=== PATIENT | male | born 2000 | race Caucasian/White ===

== ENCOUNTER 2024-09-03 20:38 | Observation (INO) ==
--- NOTE | 2024-09-03 21:57 | Emergency Department Note ---
History of Present Illness General Chief complaint: Laceration/Cut (Suture/Dermabond) Stated complaint: RT ELBOW, CUT Time Seen by Provider: 09/03/24 21:48 History of Present Illness Maximum Pain Intensity: 4 This is a 23-year-old male that presents to the emergency department via private vehicle with complaints of "right elbow pain". The patient notes that around 10 PM yesterday he was wrestling with a friend and struck the elbow against the ground. He denies striking the head or loss of consciousness. Laceration was sustained at that time. Since that time he notes progressive pain, swelling to the right elbow. Current pain 02/24. No nausea or vomiting. No fevers or chills. Patient notes he is otherwise healthy. No pertinent past medical history, surgeries or allergies. Patient [id number]. Patient notes tetanus vaccine is up-to-date. Home Medications Medication Instructions Recorded Confirmed Type No Known Home Medications 02/23/22 02/23/22 History Allergies Allergy/AdvReac Type Severity Reaction Status Date / Time cat dander Allergy Mild Congested Verified 02/23/22 16:36 ragweed pollen Allergy Mild Congested Verified 02/23/22 16:36 Past Med/Surg History Problem List (Updated 09/04/24 @ 03:21 by Td Srivastava PA-C) Elbow pain, right (Acute) Open wound of right elbow (Acute) Cellulitis of right elbow (Acute) Bursitis of right elbow (Acute) No significant past surgical history Acne Medical History Acne Surgical History No significant past surgical history Social History Smoking Status: Never smoker Second Hand Exposure: No; Do You Dip or Chew Tobacco: No; Hx Alcohol Use: No Hx Substance Use: No Preferred Language: Indonesian Communication Ability: Effective Environmental Project Manager Required: No Beliefs That Will Affect Care: None Current Living Situation: Other Current Living Situation Comment: apartment with friends Other Information That Helps Us Care for You: No Feels Safe at Home: Yes Safety Concerns: Feels Safe At This Time Assistive Devices: None Review of Systems A total of 10 systems reviewed and were otherwise negative Physical Exam Vital Signs Vital Signs - 24 hr 09/03/24 20:47 Temperature 36.7 C Temperature Source Temporal Artery Scan Pulse Rate 94 H Respiratory Rate 18 Respiratory Effort / Characteristics Non-Labored Spontaneous Respiratory Depth Normal Respiratory Pattern Regular Blood Pressure 134/72 Blood Pressure Mean 92 Pulse Oximetry 97 Oxygen Delivery Method Room Air Sepsis Recent Fever Within 48 Hours No Sepsis New/Unexplained Change in Mental Status N/A Sepsis Action Taken by Nursing No Action Required VITAL SIGNS - Vital signs and nursing notes were reviewed. Stable and afebrile. GENERAL -23-year-old male appearing his stated age who is in no acute distress. Communicates well with provider and answers questions appropriately. SKIN -soft tissue overlying the right olecranon is erythematous, edematous with an overlying approximate 1 cm gaping laceration with a small amount of yellowish drainage. The soft tissue is edematous without fluctuance. No lymphangitic streaking. No visualized retained foreign body. HEAD - NC/AT. LUNGS - Chest wall symmetric without accessory muscle use, intercostals retractions, or central cyanosis. Normal vesicular breath sounds CTA B/L. No wheezes, rales, or rhonchi appreciated. CARDIAC - RRR with S1/S2. No murmur, rubs, or gallops appreciated. EXTREMITIES -skin as above. Right elbow tender on the posterior aspect. No purulence. Right radial pulse within normal limits. Patient holds the right elbow in a position of mild extension. He is not able to actively flex noting pain to the right olecranon region. NEUROLOGIC -sensory intact to light touch throughout the right upper extremity without deficit. PSYCH -alert, oriented and pleasant on exam. Course Administered Medications Discontinued Medications Cefazolin Sodium (Ancef 2000mg) 2,000 mg in 15 mls @ 3.75 mls/min IV NOW STA Stop: 09/03/24 21:56 Last Admin: 09/03/24 23:05 Dose: 3.75 mls/min Documented By: SHIVANI Medical Decision Making Laboratory Data 09/03/24 22:08 09/03/24 22:08 Lab Results 09/03/24 Range/Units 22:08 WBC 10.05 (4.8-10.8) K/ul RBC 5.30 (4.70-6.10) M/uL Hgb 15.6 (14.0-18.0) g/dl Hct 46.4 (42.0-52.0) % MCV 87.5 (80.0-100.0) fL MCH 29.4 (25.0-34.0) pg MCHC 33.6 (32.0-36.0) g/dL RDW Std Deviation 38.7 (36.4-46.3) fL RDW Coeff of Bhargavi 12.1 (11.5-14.5) % Plt Count 221 (130-400) K/uL MPV 9.8 (9.4-12.4) fL Immature Gran % (Auto) 0.3 % Neut % (Auto) 77.1 % Lymph % (Auto) 14.6 % [place] % (Auto) 6.8 % Eos % (Auto) 0.8 % Baso % (Auto) 0.4 % Neut # (Auto) 7.75 H (1.40-6.50) K/uL Lymph # (Auto) 1.47 (1.20-3.40) K/uL [place] # (Auto) 0.68 H (0.11-0.59) K/uL Eos # (Auto) 0.08 (0.00-0.50) K/uL Baso # (Auto) 0.04 (0.00-0.20) K/uL Immature Gran # (Auto) 0.03 (0.01-0.20) K/uL Sodium 139 (136-145) mmol/L Potassium 4.0 (3.5-5.1) mmol/L Chloride 103 (98-107) mmol/L Carbon Dioxide 30 (21-32) mmol/L Anion Gap 6 (3-11) BUN 13 (6-23) mg/dl Creatinine 0.98 (0.6-1.4) mg/dl Est Cr Clr Drug Dosing 123.1 ml/min eGFR 112.51 BUN/Creatinine Ratio 13.3 (10-20) Glucose 86 (70-99(Fasting)) mg/dl Calcium 9.6 (8.6-10.3) mg/dl Total Bilirubin 1.1 H (0.2-1.0) mg/dl AST 31 (13-39) U/L ALT 40 (7-52) U/L Alkaline Phosphatase 87 (34-104) U/L Total Protein 7.8 (6.0-8.3) gm/dl Albumin 4.7 (3.4-5.0) gm/dl Globulin 3.1 (2.5-4.0) gm/dl Albumin/Globulin Ratio 1.5 (0.9-2) Imaging Data My Impression: Right elbow: From interpretation: No fracture or dislocation. No radiopaque foreign body. Soft tissue swelling posterior aspect of elbow. MDM Narrative Patient was seen and evaluated as above in room D03. Review was performed of triage nursing notes and vital signs. Patient presents to us today for right elbow pain. On assessment there is evidence of infected wound to the posterior right elbow soft tissue with surrounding edema and erythema. Area is quite tender. No bony tenderness. Right elbow x-ray was performed. Per my interpretation no fracture or dislocation. No radiopaque foreign body. Posterior swelling noted. Formal radiology report will be available in the a.m. Swab of right posterior elbow wound obtained for culture. IV access with established. IV Ancef was ordered. Labs were drawn. No leukocytosis or concerning anemia. Mild elevation of neutrophils at 7.75. No evidence of kidney or liver failure. Mild hyperbilirubinemia 1.1. I am concerned at the rather rapid infection progression as evidenced by erythema and edema to the right elbow at the laceration site status post injury that occurred about 1 day ago. This is likely a wound that has resulted in cellulitis and underlying bursitis. No fluctuance to drain at this time. Will hold off on aspiration of the bursa noting concern for overlying cellulitis. Noting rather rapid progression of this infection per timeline provided by the patient we will proceed with IV antibiotics, inpatient management. Case discussed with the hospitalist service. Please refer to further documentation regarding his stay. Laceration is not amenable to repair at this time noting infection and time since injury occurred. The right elbow was cleansed with sterile saline, dried with sterile gauze and Xeroform followed by bulky dressing was applied. Care was taken so as to not apply too tightly. GCS: 15 In the evaluation and treatment of this patient the following differential diagnoses were entertained: Olecranon bursitis, cellulitis, abscess, retained foreign body, fracture, dislocation, among others. Impression & Plan Bursitis of right elbow, Cellulitis of right elbow, Open wound of right elbow, Elbow pain, right Discharge Plan Visit Data Chief Complaint: Laceration/Cut (Suture/Dermabond) Stated Complaint: RT ELBOW, CUT ED Provider: Rhiannon Kumar ED Midlevel Provider: Td Srivastava Discharge Problem: Bursitis of right elbow, Cellulitis of right elbow, Open wound of right elbow, Elbow pain, right Patient Disposition: Admitted As Inpatient Condition: Good Discharge Instructions Interventions: ED Discharge Assessment Last Done: 09/04/24 00:16
[2024-09-03 22:25] LABS: Basophils # (auto) 0.04 K/uL (0.00-0.20); Basophils % (auto) 0.4 %; Eosinophils # (auto) 0.08 K/uL (0.00-0.50); Eosinophils % (auto) 0.8 %; Hematocrit (blood only) 46.4 % (42.0-52.0); Hemoglobin 15.6 g/dl (14.0-18.0); Immature Granulocytes # (auto) 0.03 K/uL (0.01-0.20); Immature Granulocytes % (auto) 0.3 %; Lymphocytes # (auto) 1.47 K/uL (1.20-3.40); Lymphocytes % (auto) 14.6 %; Mean Corpuscular Hemoglobin 29.4 pg (25.0-34.0); Mean Corpuscular Hgb Conc 33.6 g/dL (32.0-36.0); Mean Corpuscular Volume 87.5 fL (80.0-100.0); Mean Platelet Volume 9.8 fL (9.4-12.4); Monocytes # (auto) 0.68 K/uL (0.11-0.59); Monocytes % (auto) 6.8 %; Neutrophils # (auto) 7.75 K/uL (1.40-6.50); Neutrophils % (auto) 77.1 %; Platelet Count 221 K/uL (130-400); RDW Coefficient of Variation 12.1 % (11.5-14.5); RDW Standard Deviation 38.7 fL (36.4-46.3); White Blood Count 10.05 K/ul (4.8-10.8)
[2024-09-03 22:41] LABS: Albumin Globulin Ratio 1.5 (0.9-2); Albumin Level 4.7 gm/dl (3.4-5.0); BUN Creatinine Ratio 13.3 (10-20); Bilirubin,Total 1.1 mg/dl (0.2-1.0); Calcium 9.6 mg/dl (8.6-10.3); Creatinine Clr Calc Pharmacy 123.1 ml/min; Globulin 3.1 gm/dl (2.5-4.0); Total Protein 7.8 gm/dl (6.0-8.3)
[2024-09-03] MEDS: ceFAZolin 2000MG 2,000 MG/15 ML SYR IV STA (23:05)
--- NOTE | 2024-09-03 23:43 | History & Physical Report ---
Date of Service September 03, 2024 Assessment & Plan (1) Bursitis of right elbow: (2) Cellulitis of right elbow: Plan Right elbow bursitis/cellulitis and laceration- Status post fall Tetanus is reportedly up-to-date per patient Continue Ancef 1 g IV every 8 hours Consult orthopedic surgery History of Present Illness Chief Complaint: The patient presents to the emergency department with complaint of worsening swelling, redness pain and discharge from his right elbow, after injuring it after he fell on a hard floor about 24 hours ago. Primary Care Provider: NO PCP The patient is a 23-year-old male with no significant past medical history, who presents to the emergency department with symptoms as noted above. Reports that his tetanus is up-to-date. He presented to the emergency department due to the relatively rapid worsening of his right elbow as noted above. Patient had x-ray performed in ED which was negative. He did have a laceration which was left on suture, as it had been 24 hours since he had the injury. He is given Ancef 2 g IV from the ED, and was then referred to the hospitalist service for admission for IV antibiotics. Allergies Allergy/AdvReac Type Severity Reaction Status Date / Time cat dander Allergy Mild Congested Verified 02/23/22 16:36 ragweed pollen Allergy Mild Congested Verified 02/23/22 16:36 Home Medications Medication Instructions Recorded Confirmed Type No Known Home Medications 02/23/22 02/23/22 History Past Med/Surg History Problem List (Updated 09/04/24 @ 00:45 by Escobar Reed MD) Cellulitis of right elbow Bursitis of right elbow No significant past surgical history Acne Medical History Acne Surgical History No significant past surgical history Social History Smoking Status: Never smoker Second Hand Exposure: No; Do You Dip or Chew Tobacco: No; Hx Alcohol Use: No Hx Substance Use: No Preferred Language: Singaporean Communication Ability: Effective Photogrammetry Airplane Pilot Required: No Beliefs That Will Affect Care: None Current Living Situation: Other Current Living Situation Comment: apartment with friends Feels Safe at Home: Yes Assistive Devices: None Review of Systems Review of Systems: The patient denies chest pain, palpitations, shortness of breath, dyspnea on exertion, cough, lower extremity swelling, sore throat, fevers, chills, sweats, weight change, fatigue, nausea, vomiting, diarrhea , constipation, abdominal pain, pelvic pain, blood in urine or stool, dysuria, urinary frequency or urgency, lightheadedness, dizziness, headache, memory loss, loss of consciousness, imbalance, focal or generalized weakness, numbness or tingling in left arm or bilateral legs, generalized arthralgias or myalgias, back or neck pain, or night sweats. The review of systems is otherwise negative other than for that already noted above, and at least 10 systems have been reviewed. Physical Exam Physical Exam: The patient is awake, alert and oriented 3, well developed and well nourished, normocephalic and atraumatic, lying in bed and in no acute distress. HEENT--PERRL, EOMI, mucous membranes and oropharynx normal Neck--supple. No JVD. No bruits. Thyroid normal, trachea midline, no adenopathy. Heart--normal S1 and S2. No murmurs, rubs or gallops. Lungs--clear bilaterally, no respiratory distress, no accessory muscle use. Abdomen--normal bowel sounds and soft. Nontender. Nondistended, no hernias or masses, no organomegaly. Extremities--normal except for right elbow, with central laceration, and surrounding erythema, induration, warmth and tenderness Dermatologic-normal except for right elbow as above Neurologic--cranial nerves II through XII grossly intact. Rheumatologic--normal range of motion except for right elbow Psychiatric--normal affect. Results & Data Results & Data Vital Signs (Past 12 Hours) Vital Signs Temp Pulse Resp BP Pulse Ox O2 Del Method 09/03/24 20:47 36.7 C 94 H 18 134/72 97 Room Air Laboratory Results Laboratory Results WBC 10.05 K/ul (4.8-10.8) 09/03/24 22:08 RBC 5.30 M/uL (4.70-6.10) 09/03/24 22:08 Hgb 15.6 g/dl (14.0-18.0) 09/03/24 22:08 Hct 46.4 % (42.0-52.0) 09/03/24 22:08 MCV 87.5 fL (80.0-100.0) 09/03/24 22:08 MCH 29.4 pg (25.0-34.0) 09/03/24 22:08 MCHC 33.6 g/dL (32.0-36.0) 09/03/24 22:08 RDW Std Deviation 38.7 fL (36.4-46.3) 09/03/24 22:08 RDW Coeff of Bhargavi 12.1 % (11.5-14.5) 09/03/24 22:08 Plt Count 221 K/uL (130-400) 09/03/24 22:08 MPV 9.8 fL (9.4-12.4) 09/03/24 22:08 Immature Gran % (Auto) 0.3 % 09/03/24 22:08 Neut % (Auto) 77.1 % 09/03/24 22:08 Lymph % (Auto) 14.6 % 09/03/24 22:08 [place] % (Auto) 6.8 % 09/03/24 22:08 Eos % (Auto) 0.8 % 09/03/24 22:08 Baso % (Auto) 0.4 % 09/03/24 22:08 Neut # (Auto) 7.75 K/uL (1.40-6.50) H 09/03/24 22:08 Lymph # (Auto) 1.47 K/uL (1.20-3.40) 09/03/24 22:08 [place] # (Auto) 0.68 K/uL (0.11-0.59) H 09/03/24 22:08 Eos # (Auto) 0.08 K/uL (0.00-0.50) 09/03/24 22:08 Baso # (Auto) 0.04 K/uL (0.00-0.20) 09/03/24 22:08 Immature Gran # (Auto) 0.03 K/uL (0.01-0.20) 09/03/24 22:08 Sodium 139 mmol/L (136-145) 09/03/24 22:08 Potassium 4.0 mmol/L (3.5-5.1) 09/03/24 22:08 Chloride 103 mmol/L (98-107) 09/03/24 22:08 Carbon Dioxide 30 mmol/L (21-32) 09/03/24 22:08 Anion Gap 6 (3-11) 09/03/24 22:08 BUN 13 mg/dl (6-23) 09/03/24 22:08 Creatinine 0.98 mg/dl (0.6-1.4) 09/03/24 22:08 Est Cr Clr Drug Dosing 123.1 ml/min 09/03/24 22:08 eGFR 112.51 09/03/24 22:08 BUN/Creatinine Ratio 13.3 (10-20) 09/03/24 22:08 Glucose 86 mg/dl (70-99(Fasting)) 09/03/24 22:08 Calcium 9.6 mg/dl (8.6-10.3) 09/03/24 22:08 Total Bilirubin 1.1 mg/dl (0.2-1.0) H 09/03/24 22:08 AST 31 U/L (13-39) 09/03/24 22:08 ALT 40 U/L (7-52) 09/03/24 22:08 Alkaline Phosphatase 87 U/L (34-104) 09/03/24 22:08 Total Protein 7.8 gm/dl (6.0-8.3) 09/03/24 22:08 Albumin 4.7 gm/dl (3.4-5.0) 09/03/24 22:08 Globulin 3.1 gm/dl (2.5-4.0) 09/03/24 22:08 Albumin/Globulin Ratio 1.5 (0.9-2) 09/03/24 22:08 Code Status & VTE Plan Code Status Full code VTE Prophylaxis Plan VTE Prophylaxis will be ordered: Yes PG Care Time/CCT Total # of Minutes Spent Total Time Spent with Patient: Total time spent is greater than 50% in coordination of care (as documented) at patient's floor/unit and/or counseling patient: Coding Level of Care Code 65464 INT INP/OBS CARE 2/55MIN Diagnoses Bursitis of right elbow M70.31 Cellulitis of right elbow L03.113
[2024-09-04] MEDS ORDERED: ACETAMINOPHEN 325 MG TAB PO PRN (00:25)
[2024-09-04] MEDS ORDERED: ONDANSETRON INJ 2 MG/ML 2 ML VIAL IV PRN (00:25)
[2024-09-04] MEDS: ceFAZolin 2000MG 2,000 MG/15 ML SYR IV SCH (05:34)
[2024-09-04 07:11] LABS: Basophils # (auto) 0.05 K/uL (0.00-0.20); Basophils % (auto) 0.4 %; Eosinophils # (auto) 0.15 K/uL (0.00-0.50); Eosinophils % (auto) 1.2 %; Hemoglobin 15.1 g/dl (14.0-18.0); Immature Granulocytes # (auto) 0.04 K/uL (0.01-0.20); Immature Granulocytes % (auto) 0.3 %; Lymphocytes # (auto) 1.79 K/uL (1.20-3.40); Lymphocytes % (auto) 14.4 %; Mean Corpuscular Hemoglobin 29.7 pg (25.0-34.0); Mean Corpuscular Hgb Conc 34.3 g/dL (32.0-36.0); Mean Corpuscular Volume 86.4 fL (80.0-100.0); Mean Platelet Volume 10.3 fL (9.4-12.4); Monocytes # (auto) 0.96 K/uL (0.11-0.59); Monocytes % (auto) 7.7 %; Neutrophils # (auto) 9.47 K/uL (1.40-6.50); Platelet Count 234 K/uL (130-400); RDW Coefficient of Variation 11.9 % (11.5-14.5); RDW Standard Deviation 37.6 fL (36.4-46.3); Red Blood Count 5.09 M/uL (4.70-6.10); White Blood Count 12.46 K/ul (4.8-10.8)
[2024-09-04 07:26] LABS: Albumin Globulin Ratio 1.5 (0.9-2); Albumin Level 4.2 gm/dl (3.4-5.0); BUN Creatinine Ratio 15.9 (10-20); Bilirubin,Total 0.7 mg/dl (0.2-1.0); Calcium 9.1 mg/dl (8.6-10.3); Creatinine Clr Calc Pharmacy 147.1 ml/min; Globulin 2.8 gm/dl (2.5-4.0); Potassium 3.7 mmol/L (3.5-5.1)
--- NOTE | 2024-09-04 08:14 | Orthopedic Consultation ---
Date of Service September 04, 2024 Assessment & Plan (1) Septic olecranon bursitis of right elbow: I went over the diagnosis and treatment options with him at bedside. I recommended an open I&D in the operating room with a small drain placement. He understands the risk, benefits, alternatives to procedure elected proceed. Questions were answered at bedside and consents were signed. Time was spent scribing the procedure and post expectations. We plan to do the procedure later this morning. History of Present Illness Reason for Consultation: Septic bursitis of the right elbow. Requesting Physician: . Attending Physician: Zeus Sanchez Jake Neal is a pleasant 23-year-old male who was wrestling with his friends this week. He had a small laceration on his elbow from that. Over the past 24 hours he has noticed significant redness and pain of his right elbow. There is a small amount of purulent discharge coming from the laceration. He went to the emergency room and was given Ancef. Due to the amount of pain he was having he was admitted to the hospitalist service. Orthopedics was consulted to evaluate and treat. Allergies Allergy/AdvReac Type Severity Reaction Status Date / Time cat dander Allergy Mild Congested Verified 02/23/22 16:36 ragweed pollen Allergy Mild Congested Verified 02/23/22 16:36 Home Medications Medication Instructions Recorded Confirmed Type No Known Home Medications 02/23/22 02/23/22 History Past Med/Surg History Problem List (Updated 09/04/24 @ 08:14 by Bradley Mendenhall DO) Septic olecranon bursitis of right elbow Elbow pain, right (Acute) Open wound of right elbow (Acute) Cellulitis of right elbow (Acute) Bursitis of right elbow (Acute) No significant past surgical history Acne Social History Smoking Status: Never smoker Second Hand Exposure: No; Do You Dip or Chew Tobacco: No; Hx Alcohol Use: No Hx Substance Use: No Preferred Language: Slovenian Communication Ability: Effective Couturiere Required: No Beliefs That Will Affect Care: None Current Living Situation: Other Current Living Situation Comment: apartment with friends Other Information That Helps Us Care for You: No Feels Safe at Home: Yes Safety Concerns: Feels Safe At This Time Assistive Devices: None Review of Systems All systems reviewed & are unremarkable except as noted in HPI & below. Physical Exam On physical exam of the right elbow, he does have a large inflamed olecranon bursa. There is a small abrasion over the area and a lot of tenderness palpation when I try to express any fluid.. Constitutional WD/WN, vitals as above Eyes PERRL, conjunctivae normal, anicteric sclerae ENMT external ear and nose normal, oropharynx normal Neck trachea midline, no thyromegaly Respiratory normal respiratory effort Cardiovascular RRR, no murmur, no edema Gastrointestinal (Abdomen) normal bowel sounds, soft, nontender, no hepatosplenomegaly Psychiatric A+Ox3, euthymic affect Results & Data Results & Data Laboratory Results . Diagnostic Findings X-rays of the right elbow are negative.. PG Care Time/CCT Total # of Minutes Spent Total Time Spent with Patient: Total time spent is greater than 50% in coordination of care (as documented) at patient's floor/unit and/or counseling patient: Coding Level of Care Code 81190 IN/OBS CONSULT LVL 4,60M (57 - DECISION FOR SURGERY) Diagnoses Septic olecranon bursitis of right elbow M71.121
--- NOTE | 2024-09-04 08:17 | XRay Report ---
XR elbow RT min 3V routine CLINICAL HISTORY: R elbow infection s/p injury yesterday TECHNIQUE: 3 views of the right elbow were obtained. Comparison: None available at the time of this dictation. FINDINGS: There is no evidence of an acute fracture. Joint spaces are well-preserved. There is no prominence of the anterior or posterior fat pads to suggest an effusion. No soft tissue abnormality is seen. IMPRESSION: No evidence of acute osseous injury. ACT 112: Negative or not required by law. Electronically signed by: Luís Crocker M.D. 09/04/2024 8:15 AM
--- NOTE | 2024-09-04 08:58 | Anesthesiology Consultation ---
Date of Service September 04, 2024 Assessment & Plan (1) Encounter for pre-operative examination: Chart Review Chart Review: Acceptable Risk for Surgery History Surgery Operation Date: 09/04/24 10:00 Proposed Procedures p Incision and Drainage hamida Mendenhall DO Height/Weight Height: 5 ft 10 in Weight: 83.915 kg Allergies Allergy/AdvReac Type Severity Reaction Status Date / Time cat dander Allergy Mild Congested Verified 02/23/22 16:36 ragweed pollen Allergy Mild Congested Verified 02/23/22 16:36 Medications Home Medications Medication Instructions Recorded Confirmed Last Taken No Known Home Medications 02/23/22 02/23/22 Unknown Active Medications Generic Name Dose Route Start Last Admin Trade Name Freq PRN Reason Stop Dose Admin Cefazolin Sodium 2,000 mg in 15 mls @ 2.5 mls/min 09/04/24 06:00 09/04/24 05:34 Ancef 2000mg IV 09/11/24 05:59 2.5 mls/min Q8H ONOFRE Administration Past Medical History Medical History (Updated 09/04/24 @ 08:58 by Raji Carr MD) No pertinent past medical history Past Family History Family History (Updated 09/04/24 @ 08:58 by Raji Carr MD) Other No pertinent family history Past Surgical History Surgical History (Updated 09/04/24 @ 08:57 by Raji Carr MD) No significant past surgical history Social History Smoking Status: Never smoker Do You Dip or Chew Tobacco: No Hx Alcohol Use: No Hx Substance Use: No Physical Exam Vital Signs Last Vital Signs Temp 36.9 C 09/04/24 08:03 Pulse 81 09/04/24 08:03 Resp 16 09/04/24 08:03 BP 118/72 09/04/24 08:03 Pulse Ox 97 09/04/24 08:03 O2 Del Method Room Air 09/04/24 08:03 Testing Laboratory Results 09/04/24 06:02 09/04/24 06:02 09/03/24 21:55 Gram Stain - Final Elbow,Right
[2024-09-04] MEDS ORDERED: PROPOFOL IV EMULSION 10 MG/ML 20 ML VIAL IV ONE (09:30)
[2024-09-04] MEDS ORDERED: fentaNYL citrate PF 100 MCG/2 ML VIAL ONE (09:30)
[2024-09-04] MEDS ORDERED: ONDANSETRON INJ 2 MG/ML 2 ML VIAL ONE (09:30)
[2024-09-04] MEDS ORDERED: DEXAMETHASONE SOD INJ 4 MG/ML VIAL ONE (09:30)
[2024-09-04] MEDS ORDERED: MIDAZOLAM HCL 1 MG/ML 2ML VIAL ONE (09:30)
[2024-09-04] MEDS ORDERED: LIDOCAINE 2% 2 ML VIAL/AMP(20MG/ML) INFIL ONE (09:30)
--- NOTE | 2024-09-04 11:59 | Hospitalist Progress Note ---
Date of Service September 04, 2024 Assessment & Plan (1) Bursitis of right elbow: Plan: Patient presented to the ED on 09/03/2024 for right elbow pain. -orthopedic surgery consult reviewed 09/04 plan for I&D in OR 09/05. NPO after midnight -Continue Ancef 2g IV q8H -Tylenol prn for pain. -CBC reviewed 09/04: leukocytosis w/ WBC Of 12.46, -BMP reviewed 09/04: unremarkable. -tetanus UTD per patient. AM CBC, BMP (2) Cellulitis of right elbow: Plan: as above. Plan Diet: regular, NPO after midnight DVT prophylaxis: deferred as patient to go to OR 09/05 Disposition: medical Code status: full Admission and Anticipated Discharge Date Admission Date: September 03, 2024 Subjective Patient seen and examined this morning. Patient resting comfortably in bed. He states he is in minimal pain in his right elbow at time of my encounter. Per nursing, I&D was switched to tomorrow due to patient eating this morning. No additional complaints reported. Physical Exam 2 Constitutional: WD/WN, vitals as above Eyes: PERRL, conjunctivae normal, anicteric sclerae Respiratory: breathing unlabored Cardiovascular: well perfused Skin: right elbow wrapped Psychiatric: A+Ox3, euthymic affect Results & Data Results & Data Vital Signs (Past 12 Hours) Vital Signs Temp Pulse Resp BP Pulse Ox O2 Del Method 09/04/24 08:03 36.9 C 81 16 118/72 97 Room Air 09/04/24 00:26 36.6 C 64 14 124/78 97 Room Air Laboratory Results 09/04/24 06:02 09/04/24 06:02 PG Care Time/CCT Total # of Minutes Spent Total Time Spent with Patient: Total time spent is greater than 50% in coordination of care (as documented) at patient's floor/unit and/or counseling patient: Coding Level of Care Code 63581 SUB INP/OBS CARE 2/35MIN Diagnoses Bursitis of right elbow, unspecified bursa M70.31 Elbow bursitis location: unspecified Cellulitis of right elbow L03.113 (1) Bursitis of right elbow Elbow bursitis location: unspecified Qualified Code(s): M70.31 - Other bursitis of elbow, right elbow
[2024-09-05 06:08] LABS: Basophils # (auto) 0.05 K/uL (0.00-0.20); Basophils % (auto) 0.5 %; Eosinophils # (auto) 0.14 K/uL (0.00-0.50); Eosinophils % (auto) 1.3 %; Hematocrit (blood only) 43.4 % (42.0-52.0); Hemoglobin 14.9 g/dl (14.0-18.0); Immature Granulocytes # (auto) 0.03 K/uL (0.01-0.20); Immature Granulocytes % (auto) 0.3 %; Lymphocytes # (auto) 2.01 K/uL (1.20-3.40); Lymphocytes % (auto) 18.7 %; Mean Corpuscular Hemoglobin 29.6 pg (25.0-34.0); Mean Corpuscular Hgb Conc 34.3 g/dL (32.0-36.0); Mean Corpuscular Volume 86.3 fL (80.0-100.0); Mean Platelet Volume 10.2 fL (9.4-12.4); Monocytes % (auto) 7.5 %; Neutrophils % (auto) 71.7 %; Platelet Count 204 K/uL (130-400); RDW Coefficient of Variation 11.9 % (11.5-14.5); Red Blood Count 5.03 M/uL (4.70-6.10); White Blood Count 10.73 K/ul (4.8-10.8)
[2024-09-05 06:33] LABS: Albumin Globulin Ratio 1.4 (0.9-2); Albumin Level 4.2 gm/dl (3.4-5.0); BUN Creatinine Ratio 13.8 (10-20); Bilirubin,Total 0.7 mg/dl (0.2-1.0); Calcium 9.3 mg/dl (8.6-10.3); Creatinine Clr Calc Pharmacy 150.8 ml/min; Potassium 4.2 mmol/L (3.5-5.1); Total Protein 7.2 gm/dl (6.0-8.3)
[2024-09-05] MEDS ORDERED: MIDAZOLAM HCL 1 MG/ML 2ML VIAL ONE (07:26)
[2024-09-05] MEDS ORDERED: PROPOFOL IV EMULSION 10 MG/ML 20 ML VIAL IV ONE ×2 (07:26→09:32)
[2024-09-05] MEDS ORDERED: fentaNYL citrate PF 100 MCG/2 ML VIAL ONE (07:26)
[2024-09-05] MEDS ORDERED: LIDOCAINE 2% 2 ML VIAL/AMP(20MG/ML) INFIL ONE (07:26)
[2024-09-05] MEDS ORDERED: ONDANSETRON INJ 2 MG/ML 2 ML VIAL ONE (07:26)
--- NOTE | 2024-09-05 08:22 | Orthopedic Progress Note ---
Date of Service September 05, 2024 Assessment & Plan (1) Septic olecranon bursitis of right elbow: He is currently NPO. Will proceed with an open I&D of the right olecranon later this morning. He understands the risk, benefits, alternatives procedure elected proceed. Questions were answered at bedside. Subjective Ángel was seen and examined at bedside this morning. He still having pain in the right elbow. He has been on Ancef IV. No new complaints.. Review of Systems All systems reviewed & are unremarkable except as noted in HPI & below. Physical Exam Physical exam of the right elbow, there is a large cellulitic area. He has tenderness to palpation.. Results & Data Results & Data Laboratory Results . Diagnostic Findings . PG Care Time/CCT Total # of Minutes Spent Total Time Spent with Patient: Total time spent is greater than 50% in coordination of care (as documented) at patient's floor/unit and/or counseling patient: Coding Level of Care Code 75738 SUB INP/OBS CARE 2/35MIN (57 - DECISION FOR SURGERY) Diagnoses Septic olecranon bursitis of right elbow M71.121
--- NOTE | 2024-09-05 08:22 | History & Physical Bridge Note ---
Date of Service September 05, 2024 History & Physical Bridge Note I have examined the patient, reviewed the History & Physical and in the interval since the performance of the History & Physical I have noted the following changes of clinical significance: no changes noted
[2024-09-05] MEDS ORDERED: ATROPINE SULFATE 0.1 MG/ML 10ML SYR IV PRN (08:57)
[2024-09-05] MEDS ORDERED: PROMETHAZINE HCL 6.25 MG in SODIUM CHLORIDE 0.9% 50 ML IV PRN (08:57)
[2024-09-05] MEDS: BUPIVACAINE/EPINEPHRINE 0.5% MPF 1:200,000 30 ML VIAL ONE (09:09)
--- NOTE | 2024-09-05 09:34 | Operative Report ---
PG Post Operative Report Pre & Post Diagnosis Operation Date: 09/05/24 10:00 Pre-Op Diagnosis: 1. Septic olecranon bursitis of right elbow Post-Op Diagnosis: 1. Septic olecranon bursitis of right elbow I identified the patient and participated in the time-out.: Yes Procedure Operation Date: 09/05/24 10:00 Actual Procedures p irrigation and debridement right Elbow olecranon septic bursitis (Not Applicable) - Bradley Mendenhall DO Surgeon Bradley Mendenhall DO Trading Floor Operator None Estimated Blood Loss 5 Findings Consistent with Post-Op Diagnosis Specimens Cultures Description of Procedure On September 05, 2024 Ángel was brought down from his hospital room to the preoperative holding area. The operative extremity identified and signed. He was taken back the operating room and laid on table in supine position. He was put under general anesthesia. The right elbow was prepped and draped sterile fashion. A timeout was done. The patient and the operative extremity was properly identified. A longitudinal incision was made directly over the olecranon bursa. Dissection was taken down through the fascia. There was a large amount of purulent discharge from the bursa. This was cultured in sterile fashion. Once the abscess was evacuated, time was spent doing a debridement of the surrounding olecranon bursa. Any infected appearing tissue was removed. Hemostasis was obtained. The wound was then irrigated with a liter of normal saline solution by bulb syringe. Surrounding soft tissues were injected with Marcaine with epi nephrine. A [place] drain was placed. The skin was closed with 3-0 nylon suture. He was then placed in a soft dressing. He was then extubated and transferred back to a hospital bed. He was taken to the postanesthesia care unit in stable condition. He tolerated the procedure well. I attest to the content of the Intraoperative Record and any orders documented therein. Any exceptions are noted below.
--- NOTE | 2024-09-05 10:02 | Anesthesiology Progress Note ---
Date of Service September 05, 2024 Anesthesia Post Procedure Vital Signs Vital Signs: Temp Pulse Pulse Resp BP Pulse Ox O2 Del Method 09/05/24 09:55 76 14 132/95 100 Oxymask 09/05/24 09:45 67 12 125/71 96 Oxymask 09/05/24 09:35 36.1 C L 72 12 117/51 L 96 Oxymask 09/05/24 07:50 36.6 C 59 L 16 121/72 96 Room Air 09/04/24 21:10 36.6 C 63 16 135/73 99 Room Air 09/04/24 14:58 36.8 C 68 16 109/70 97 Room Air O2 Flow Rate 09/05/24 09:55 3 09/05/24 09:45 6 09/05/24 09:35 6 09/05/24 07:50 09/04/24 21:10 09/04/24 14:58 Transfer of Care Handoff Completed per policy Notes Mental Status: alert / awake / arousable Patient Amnestic to Procedure: Yes Nausea / Vomiting: adequately controlled Pain: adequately controlled Airway Patency, RR, SpO2: stable & adequate BP & HR: stable & adequate Hydration State: stable & adequate Anesthetic Complications: no major complications apparent
[2024-09-05] MEDS: ONDANSETRON INJ 2 MG/ML 2 ML VIAL IV PRN (10:15)
[2024-09-05] MEDS: KETOROLAC 30 MG/ML VIAL IV PRN (10:17)
[2024-09-05] MEDS: HYDROmorphone INJ 1 MG/ML SYRINGE IV PRN (10:18)
[2024-09-05 11:00] VITALS: RESP 16
[2024-09-05 12:09] VITALS: BP 106/61; PULSE 56; TEMP 97.7; O2SAT 97
--- NOTE | 2024-09-05 12:55 | Discharge Summary ---
Discharge Summary Date of Service September 05, 2024 Principal Dx & Hospital Course #1 = Principal Diagnosis (1) Bursitis of right elbow: Patient presented to the ED on 09/03/2024 for right elbow pain. -orthopedic surgery consulted s/p I&D in OR 09/[address] Mendenhall discharged home on Bactrim BID and Doxycycline BID x 14 days patient to follow up with orthopedics on 09/08. -Tylenol prn for pain. -CBC/BMP stable 09/05. -tetanus UTD per patient. (2) Cellulitis of right elbow: as above. Admission HPI Per Admitting Provider The patient is a 23-year-old male with no significant past medical history, who presents to the emergency department with symptoms as noted above. Reports that his tetanus is up-to-date. He presented to the emergency department due to the relatively rapid worsening of his right elbow as noted above. Patient had x-ray performed in ED which was negative. He did have a laceration which was left on suture, as it had been 24 hours since he had the injury. He is given Ancef 2 g IV from the ED, and was then referred to the hospitalist service for admission for IV antibiotics. Discharge Exam Constitutional WD/WN, vitals as above Respiratory breathing unlabored Cardiovascular well perfused Musculoskeletal right elbow wrapped Skin no rashes, warm and dry Discharge Plan Discharge Items Patient Disposition: Home - Self-Care Reason For Visit: RIGHT ELBOW BURSITIS, CELLULITIS, LACERATION Discharge Diagnosis: right elbow bursitis and cellulitis Condition on Discharge: Good Activity: Per Instructions section Lifting Comment: avoid lifting with right arm until seen by ortho on 09/08 Bathing: Keep incision dry Bathing Comment: avoid submerging right arm until seen by ortho on 09/08 Exercise/Sports: None Exercise Comment: none until cleared by ortho Non-emergency contact: Primary Care Provider and Surgeon Call non-emergency contact if: you have any medication questions, your symptoms worsen and you have a fever Follow-up/Referrals: PCP,NO [Primary Care Provider] - Diet: Regular Addtl Attending Provider Instructions: Mr. Dorado, You were recently hospitalized for a right elbow laceration and found to have an infection of both the outside and inside of your elbow. Please see recommendations below regarding your discharge. 1. Please follow up with orthopedics on 09/08. - their office should be in contact with you for a visit time. If you do not hear from their office by the end of the day Friday, please call for your visit time. 2. Please take Bactrim twice daily and Doxycycline twice daily for the next two weeks. First dose of these antibiotics should be this evening 09/05. Please take with food to avoid GI upset. If you develop any worsening pain, fever, chills, or drainage around the incision/drain site please report back to the ER for further care. Sincerely, Kylie Chacko PA-C Pending Studies at Discharge: Yes Studies:: elbow fluid cultures from OR Stand-Alone Forms: My [facility] Stream, Smoking Cessation Medications and DC Order Prescriptions: New sulfamethoxazole-trimethoprim [Bactrim DS] 800-160 mg tablet 1 tab PO BID Qty: 28 0RF doxycycline hyclate 100 mg capsule 100 mg PO BID 14 Days Qty: 28 0RF No Action No Known Home Medications Discharge Orders: Discharge Order (Routine); Ordered 09/05/24 Ordered By: Kylie Chacko Admission Data Admit Date/Time: 09/03/24 23:42 Attending Provider: Zeus Joseph Admit Provider: Escobar Reed Primary Care Provider: PCP,NO Other Providers: Escobar Reed; Bradley Mendenhall Other Interventions: Discharge Summary Assessment (RN) Last Done: 09/05/24 13:06 Hospital Stay Data Consultations 09/03/24 23:35 ED Decision to Admit Stat 09/03/24 23:42 Consult Orthopedic Surgery Routine Procedures Performed Operation Date: 09/05/24 10:00 Actual Procedures p Incision and Drainage Right Elbow(Not Applicable) - Bradley Mendenhall DO Pending Results Patient Have Any Pending Studies at Discharge: Yes Discharge Instructions Given to Patient (Per Discharging Provider) Mr. Dorado, You were recently hospitalized for a right elbow laceration and found to have an infection of both the outside and inside of your elbow. Please see recommendations below regarding your discharge. 1. Please follow up with orthopedics on 09/08. - their office should be in contact with you for a visit time. If you do not hear from their office by the end of the day Friday, please call for your visit time. 2. Please take Bactrim twice daily and Doxycycline twice daily for the next two weeks. First dose of these antibiotics should be this evening 09/05. Please take with food to avoid GI upset. If you develop any worsening pain, fever, chills, or drainage around the incision/drain site please report back to the ER for further care. Sincerely, Kylie Chacko PA-C Total Time Total Time Spent Total Time Spent (In Minutes): 35 Total Time Includes: Examination of the Patient, Discharge Planning, Medication Reconciliation and Communication With Other Providers Coding Level of Care Code 27832 INP/OBS DISCH >30 MIN Diagnoses Bursitis of right elbow, unspecified bursa M70.31 Elbow bursitis location: unspecified Cellulitis of right elbow L03.113
== END 2024-09-05 14:11 | disposition home or self-care (01) ==
LOC: ED 20:38 → 3W 20:38 → SUATTDRO 23:42 → 3W 09-04 00:16